=== PATIENT | female | born 1980 | race Caucasian/White ===

== ENCOUNTER 2019-09-01 17:28 | Emergency (ER) | payer OTHER ==
--- OUTSIDE RECORDS SUMMARY | 2019-09-01 18:01 | XMS REPORT | Continuity of Care Document ---
:1980 External Reference #:[id number] Author Name Liu Amanda M.D. 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 Onset: 01/10/2012 Disorder of thyroid gland Liu Amanda M.D. Onset: 01/10/2012 Gastroesophageal reflux disease Liu Amanda M.D. Onset: 01/10/2012 Social History Type Date Description Comments Sex Unknown Tobacco Use Start: Unknown Never Smoked Cigarettes ETOH Use Rarely consumes alcohol Allergies, Adverse Reactions, Alerts Active Allergies Reaction Severity Comments Date Penicillins HIVES 05/04/2009 Amoxicillin HIVES 05/04/2009 Medications Active Medications SIG Qnty Indications Ordering Provider Date Percocet 1-2 by mouth 20tabs Liu Amanda M.D. 07/14/2019 5-325mg four times a day Tablets as needed for pain Ondansetron one tab q8 30tabs Liu Amanda M.D. 07/14/2019 4mg Tablets Dispers Cytomel one tab daily 30tabs Liu Amanda M.D. 06/16/2019 25mcg Tablets for a month Tirosint 2 by mouth every Unknown 150mcg day Capsules Immunizations Description No Information Available Vital Signs Date Vital Result Comment 07/21/2019 1:54pm Weight 236.00 lb Height 64.5 inches 5'4.50" BMI (Body Mass Index) 39.9 kg/m2 BP Systolic 134 mmHg BP Diastolic 87 mmHg Heart Rate 93 /min O2 % BldC Oximetry 96 % Body Temperature 98.4 F Pain Level 0 07/07/2019 4:06pm Weight 240.00 lb Height 64.5 inches 5'4.50" BMI (Body Mass Index) 40.6 kg/m2 BP Systolic 134 mmHg BP Diastolic 78 mmHg Heart Rate 94 /min O2 % BldC Oximetry 98 % Body Temperature 98.5 F Pain Level 0 Results Test Acquired Date Facility Test Result H/L Range Note Laboratory test 07/14/2019 [facility] Surgical SEE RESULT [address] Pathology BELOW [place], [place] [id number] [phone] TSH (Thyroid Stim Horm) 0.20 mcIU/mL Low 0.34-5.60 2 Free T4 (Free Thyroxine) 0.99 ng/dL Normal 0.61-1.12 3 Laboratory test 06/20/2019 [facility] Cytology SEE RESULT 4 , [address] Non-Arcade Game Technician BELOW [place], [place] [id number] [phone] TSH+Free T4 06/03/2019 [facility] TSH (Thyroid 28.05 High 0.34 - [address] Stim Horm) mcIU/mL 5.60 [place], [place] [address] [phone] Free T4 (Free Thyroxine) 0.42 ng/dL Low 0.61-1.12 7 1 SEE RESULT BELOW Name: DIANNA AQUINO : [address]: Liu Amanda MD Acct: [id number] Unit: [id number] AGE: 39 Location: [facility] Re07/14/19 SEX: F Status: REG REF SPEC: [id number] MEDHAT: 07/14/19-9 [facility] [address]: Liu Amanda MD REQ: [id number] RECD: 07/14/19 STATUS: SOUT _ ORDERED: LEVEL 4 COMMENTS: [id number] FINAL DIAGNOSIS Midline neck, excision: -- Benign thyroid parenchymal nodule with nodular hyperplasia. -- No evidence of neoplasia. COMMENT: Sections show skeletal muscle and fibroadipose tissue with a well demarcated nodule of benign thyroid tissue. The findings are favored to represent a heterotopic focus of benign thyroid. CLINICAL HISTORY No history given GROSS DESCRIPTION The specimen is received in formalin labeled, Midline Neck Mass, and consists of a 2.0 x 1.1 x 0.9 cm case-reyes ovoid rubbery smooth to shaggy soft tissue nodule with a small amount of adherent yellow fat. The cut surface is translucent case-brown and colloidal. The specimen is inked, serially sectioned and entirely submitted in one cassette. Signed by and Reported on: Elizabeth Trinh MD 07/16/19 1548 END OF REPORT DEPARTMENT OF PATHOLOGY, [address] [place] [address] Primitivo Rose M.D. Director [facility] # [id number] 2 [id number] 5 SEE RESULT BELOW Name: DIANNA AQUINO : [address]: Liu Amanda MD Acct: [id number] Unit: [id number] AGE: 39 Location: [facility] Re06/20/19 SEX: F Status: REG REF SPEC: [id number] MEDHAT: 06/20/[address] [facility] [address]: Liu Amanda MD REQ: [id number] RECD: 06/20/19 STATUS: SOUT _ ORDERED: FNA [facility], LEVEL 4, IMMUNO-FIRST COMMENTS: [id number] FINAL DIAGNOSIS Mid-line neck mass, fine needle aspiration: -- Benign thyroid nodule, colloid/hyperplastic ([place] class II). The specimen demonstrates abundant watery colloid, an abundant amount of benign appearing follicular epithelium arranged in uniform sheets, medium sized follicles and only occasional small groups. No features of papillary carcinoma are seen. In this clinical setting the risk of malignancy is less than 3%. Clinical management of this thyroid nodule should be based on clinical and radiographic features as well as the above. An immunohistochemical stain for thyroglobulin performed with appropriate control demonstrates positive staining in proteinaceous debris. No epithelial elements are seen. A cell block was prepared in the evaluation of this specimen. CONTINUED ON NEXT PAGE DEPARTMENT OF PATHOLOGY, [address] [place] [address] Primitivo Rose M.D. Director [facility] # [id number] SPECIMEN(S) RECEIVED 1. NECK - MID LINE NECK MASS FINE NEEDLE ASPIRATION CLINICAL HISTORY Mid line neck mass. GROSS DESCRIPTION 1 Alcohol fixed slide(s) received from clinician, 5 Air dried slide(s) and needle rinse in formalin for cell block. Signed by and Reported on: Primitivo Rose MD 1020 END OF REPORT DEPARTMENT OF PATHOLOGY, [address] [place] [address] Primitivo Rose M.D. Director [facility] # [id number] 6 [id number] Procedures Date Code Description Status 07/14/2019 11897 Exc.Cyst Or Adenoma Of Thyroid Completed 07/14/2019 16768 Anesthesia, Neck Organ Surgery Not Otherwise Spec 1Yr Or Completed Older 06/20/2019 13287 Fine Needle Aspiration Biopsy [facility] Ultrasound Guidance Completed 06/03/2019 87584 Ultrasound Head/Neck Completed 06/03/2019 59976 Fiberoptic Laryngoscopy,Diag. Completed Medical Devices Description No Information Available Encounters Type Date Location Provider Dx Diagnosis Office Visit 07/07/2019 Main Office Liu Amanda M.D. H66.92 Otitis media , 4:15p unspecified, left ear R22.1 Localized swelling, mass and lump, neck Office Visit 06/03/2019 3:45p Main Office Liu Amanda, R22.1 Localized swelling, M.D. mass and lump, neck R13.10 Dysphagia, unspecified Assessments Date Code Description Provider 07/14/2019 E07.89 Other specified disorders of thyroid Erik Jimenez MD 07/14/2019 E07.89 Other specified disorders of thyroid Liu Amanda M.D. 07/07/2019 H66.92 Otitis media, unspecified, left ear Liu Amanda M.D. 07/07/2019 R22.1 Localized swelling, mass and lump, neck Liu Amanda M.D. 06/20/2019 R22.1 Localized swelling, mass and lump, neck Liu Amanda M.D. 06/03/2019 R22.1 Localized swelling, mass and lump, neck Liu Amanda M.D. 06/03/2019 R13.10 Dysphagia, unspecified Liu Amanda M.D. Plan of Treatment No Information Available Functional Status Description No Information Available Mental Status Description No Information Available Referrals Refer to Dr Reason for Referral Status Appt Date Liu Amanda M.D. NO AUTH REQ FOR SURGERY Created [address] [place] [address] [phone] Liu Amanda M.D. AUTH FOR ULTRASOUND Created [address] [place] [phone]
--- OUTSIDE RECORDS SUMMARY | 2019-09-01 18:01 | XMS REPORT | Continuity of Care Document ---
:1980 External Reference #:[id number] Author Name Liu Amanda M.D. (transmitted by agent of provider Jaqui Pittman) Address [address] [place] [address] Care Team Providers Name Role Phone David Menendez MD - General Care Team Information Director Learning Services Practice Problems Active Problems Provider Date Postoperative [...] Medications SIG Qnty Indications Ordering Provider Date Cytomel one tab daily 30tabs Liu Amanda M.D. 06/16/2019 25mcg Tablets for a month Tirosint 2 by mouth Unknown 150mcg Capsules every day Immunizations Description No Information Available Vital Signs Date Vital Result Comment 07/07/2019 4:06pm Weight 240.00 lb Height 64.5 inches 5'4.50" BMI (Body Mass Index) 40.6 kg/m2 BP Systolic 134 mmHg BP Diastolic 78 mmHg Heart Rate 94 /min O2 % BldC Oximetry 98 % Body Temperature 98.5 F Pain Level 0 06/03/2019 3:45pm Weight 245.00 lb Height 64.5 inches 5'4.50" BMI (Body Mass Index) 41.4 kg/m2 BP Systolic 135 mmHg BP Diastolic 81 mmHg Heart Rate 72 /min O2 % BldC Oximetry 99 % Body Temperature 96.9 F Pain Level 0 Results Test Acquired Date Facility Test Result H/L Range Note Laboratory test 06/20/2019 [facility] Cytology SEE RESULT 1 , [address] Non-[place] [address] [phone] TSH+Free T4 06/03/2019 [facility] TSH (Thyroid 28.05 High 0.34 -5.[address] Stim Horm) mcIU/mL [place], [place] [address] [phone] Free T4 (Free Thyroxine) 0.42 ng/dL Low 0.61-1.12 4 1 [id number] 2 SEE RESULT BELOW Name: DIANNA AQUINO : [address]: Liu Amanda MD Acct: [id number] Unit: [id number] AGE: 39 Location: [facility] Re06/20/19 SEX: F Status: REG REF SPEC: [id number] MEDHAT: 06/20/[address] [facility] [address]: Liu Amanda MD REQ: [id number] RECD: 06/20/19 STATUS: SOUT _ ORDERED: FNA [facility], LEVEL 4, IMMUNO-FIRST COMMENTS: [id number] FINAL DIAGNOSIS Mid-line neck mass, fine needle aspiration: -- Benign thyroid nodule, colloid/hyperplastic ([place] class II). The specimen demonstrates abundant watery [...] CONTINUED ON NEXT PAGE DEPARTMENT OF PATHOLOGY, [address] [place] [address] Primitivo Rose M.D. Director [facility] # [id number] SPECIMEN(S) RECEIVED 1. NECK - MID LINE NECK MASS FINE NEEDLE ASPIRATION CLINICAL HISTORY Mid line neck mass. GROSS DESCRIPTION 1 Alcohol fixed slide(s) received from clinician, 5 Air dried slide(s) and needle rinse in formalin for cell block. Signed by and Reported on: Primitivo Rose MD 1020 END OF REPORT DEPARTMENT OF PATHOLOGY, [address] [place] [address] Primitivo Rose M.D. Director [facility] # [id number] 3 [id number] Procedures Date Code Description Status 06/20/2019 24450 Fine Needle Aspiration Biopsy [facility] Ultrasound Guidance Completed 06/03/2019 29957 Ultrasound Head/Neck Completed 06/03/2019 19309 Fiberoptic Laryngoscopy,Diag. Completed Medical Devices Description No Information Available Encounters Type Date Location Provider Dx Diagnosis Office Visit 07/07/2019 Main Office Liu Amanda M.D. H66.92 Otitis media , 4:15p unspecified, left ear R22.1 Localized swelling, mass and lump, neck Office Visit 06/03/2019 3:45p Main Office Liu Amanda R22.1 Localized swelling, M.D. mass and lump, neck R13.10 Dysphagia, unspecified Assessments Date Code Description Provider 07/07/2019 H66.92 Otitis media, unspecified, left ear Liu Amanda M.D. 07/07/2019 R22.1 Localized swelling, mass and lump, neck Liu Amanda M.D. 06/20/2019 R22.1 Localized swelling, mass and lump, neck Liu Amanda M.D. 06/03/2019 R22.1 Localized swelling, mass and lump, neck Liu Amanda M.D. 06/03/2019 R13.10 Dysphagia, unspecified Liu Amanda M.D. Plan of Treatment Future Appointment(s):07/21/2019 1:45 pm - Liu Amanda M.D. at Main [id number] 9:00 am - [facility] Functional Status Description No Information Available Mental Status Description No Information Available Referrals Refer to Dr Reason for Referral Status Appt Date Liu Amanda M.D. NO AUTH REQ FOR SURGERY Created [address] [place] [phone] Liu Amanda M.D. AUTH FOR ULTRASOUND Created [address] [place] [address] [phone]
--- OUTSIDE RECORDS SUMMARY | 2019-09-01 18:01 | XMS REPORT | Continuity of Care Document ---
:1980 External Reference #:[id number] Author Name Liu Amanda M.D. Address [address] [place] [address] Care Team Providers Name Role Phone David Menendez MD - General Care Team Information Records Management Manager Practice Problems Active Problems Provider Date Postoperative [...] Result H/L Range Note Laboratory test 07/14/2019 [facility] Surgical SEE RESULT [address] [place] [address] [phone] TSH (Thyroid Stim Horm) 0.20 mcIU/mL Low 0.34-5.60 2 Free T4 (Free Thyroxine) 0.99 ng/dL Normal 0.61-1.12 3 Laboratory test 06/20/2019 [facility] Cytology SEE RESULT 4 , [address] Non-Cold [place] [address] [phone] TSH+Free T4 06/03/2019 [facility] TSH (Thyroid 28.05 High 0.34 - [address] Stim Horm) mcIU/mL 5.60 [place] [address] [phone] Free T4 (Free Thyroxine) 0.42 ng/dL Low 0.61-1.12 7 1 SEE RESULT BELOW Name: DIANNA AQUINO : [address]: Liu Amanda MD Acct: [id number] Unit: [id number] AGE: 39 Location: [facility] Re07/14/19 SEX: F Status: REG REF SPEC: [id number] MEDHAT: 07/14/19-[address] [facility] [address]: Liu Amanda MD REQ: [id number] RECD: 07/14/19 STATUS: SOUT _ ORDERED: LEVEL 4 COMMENTS: [id number] FINAL DIAGNOSIS Midline neck, excision: -- Benign [...] 1548 END OF REPORT DEPARTMENT OF PATHOLOGY, [address] [place] [address] Primitivo Rose M.D. Director [facility] # [id number] 2 [id number] 5 SEE RESULT BELOW Name: DIANNA AQUINO : [address]: Liu Amanda MD Acct: [id number] Unit: [id number] AGE: 39 Location: [facility] Re06/20/19 SEX: F Status: REG REF SPEC: [id number] MEDHAT: 06/20/19-[address] [facility] [address]: Liu Amanda MD REQ: [id number] RECD: 06/20/19 STATUS: SOUT _ ORDERED: FNA [facility], LEVEL 4, IMMUNO-FIRST COMMENTS: [id number] FINAL DIAGNOSIS Mid-line neck mass, fine needle aspiration: -- Benign thyroid nodule, colloid/hyperplastic (Surveyor class II). The specimen demonstrates abundant watery [...] CONTINUED ON NEXT PAGE DEPARTMENT OF PATHOLOGY, [address] [place] [address] Primitivo Rose M.D. Director [facility] # [id number] SPECIMEN(S) RECEIVED 1. NECK - MID LINE NECK MASS FINE NEEDLE ASPIRATION CLINICAL HISTORY Mid line neck mass. GROSS DESCRIPTION 1 Alcohol fixed slide(s) received from clinician, 5 Air dried slide(s) and needle rinse in formalin for cell block. Signed by and Reported on: Primitivo Rose MD 1020 END OF REPORT DEPARTMENT OF PATHOLOGY, [address] [place] [address] Primitivo Rose M.D. Director [facility] # [id number] 6 [id number] Procedures Date Code Description Status 07/14/2019 19443 Exc.Cyst Or Adenoma Of Thyroid Completed 07/14/2019 73834 Anesthesia, Neck Organ Surgery Not Otherwise Spec 1Yr Or Completed Older 06/20/2019 87025 Fine Needle Aspiration Biopsy [facility] Ultrasound Guidance Completed 06/03/2019 54013 Ultrasound Head/Neck Completed 06/03/2019 16048 Fiberoptic Laryngoscopy,Diag. Completed Medical Devices Description No Information Available Encounters Type Date Location Provider Dx Diagnosis Office Visit 07/07/2019 Main Office Liu Aamnda M.D. H66.92 Otitis media , 4:15p unspecified, left ear R22.1 Localized swelling, mass and lump, neck Office Visit 06/03/2019 3:45p Main Office Liu Amanda, R22.1 Localized swelling, M.D. mass and lump, neck R13.10 Dysphagia, unspecified Assessments Date Code Description Provider 07/21/2019 R22.1 Localized swelling, mass and lump, neck Liu Amanda M.D. 07/14/2019 E07.89 Other specified disorders of thyroid [...] M.D. NO AUTH REQ FOR SURGERY Created [address] [place] [phone] Liu Amanda M.D. AUTH FOR ULTRASOUND Created [address] [place] [phone]
[2019-09-01 19:31] VITALS: BP 123/69
[2019-09-01 20:10] LABS: Influenza B Molecular POSITIVE (Negative)
--- NOTE | 2019-09-01 20:14 | UC ---
FLU HPI - HPI Summary HPI Summary: 39-year-old female presents with onset of subjective fever, chills, general malaise, body aches, nasal congestion, sore throat, and occasional dry nonproductive cough yesterday. States symptoms have progressively worsened throughout the day today. She did have her flu shot this season. Denies ear pain, dysphagia, chest pain, shortness of breath, abdominal pain, nausea, vomiting, or diarrhea. - History of Current Complaint Chief Complaint: UCGeneralIllness Stated Complaint: STUFFY, COUGH, SORE THROAT Time Seen by Provider: 09/01/19 19:59 Hx Obtained From: Patient Hx Last Menstrual Period: 08/13/19 Pain Intensity: 8 - Allergy/Home Medications Allergies/Adverse Reactions: Allergies Allergy/AdvReac Type Severity Reaction Status Date / Time amoxicillin Allergy Hives Verified 09/01/19 19:32 Penicillins Allergy Hives Verified 09/01/19 19:32 PMH/Surg Hx/FS Hx/Imm Hx Endocrine History: Thyroid Disease - Surgical History Surgical History: Yes Surgery Procedure, Year, and Place: 2003 -STENT IN BILIARY DUCT GALLBLADDER. 2004 - STENT REMOVED FROM BILIARY DUCT. 07/08 - Lt [facility]- THYROIDECTOMY and then right. GALLBLADDER REMOVED - Family History Known Family History: Positive: Non-Contributory - Social History Occupation: Employed Full-time Lives: With Family Alcohol Use: Occasionally Substance Use Type: None Smoking Status (MU): Never Smoked Tobacco Review of Systems All Other Systems Reviewed And Are Negative: Yes Constitutional: Positive: Fever - Subjective, Chills Eyes: Negative: Drainage, Eye Redness ENT: Positive: Sore Throat, Nasal Discharge, Sinus Congestion. Negative: Ear Ache, Sinus Pain/Tenderness Respiratory: Positive: Cough. Negative: Shortness Of Breath Cardiovascular: Negative: Chest Pain Gastrointestinal: Negative: Abdominal Pain, Vomiting, Diarrhea, Nausea Genitourinary: Positive: Negative Musculoskeletal: Positive: Myalgia Neurological: Positive: Negative Is Patient Immunocompromised?: No Physical Exam - Summary Physical Exam Summary: GENERAL APPEARANCE: Well developed, well nourished, alert and cooperative, and appears to be in no acute distress. EYES: Conjunctiva clear. No drainage. EARS: External auditory canals and tympanic membranes clear, hearing grossly intact. NOSE: Moderate nasal congestion. Clear nasal discharge. THROAT: Pharyngeal erythema without tonsilar inflammation, swelling, exudate, or lesions. Uvula midline. NECK: Neck supple, non-tender without lymphadenopathy. CARDIAC: Normal S1 and S2. No S3, S4 or murmurs. Rhythm is regular. There is no peripheral edema, cyanosis or pallor. Extremities are warm and well perfused. Capillary refill is less than 2 seconds. Peripheral pulses intact. LUNGS: Clear to auscultation without rales, rhonchi, wheezing or diminished breath sounds. Dry nonproductive cough and ABDOMEN: Positive bowel sounds. Soft, nondistended, nontender. No guarding or rebound. No masses or hepatosplenomegally. MUSKULOSKELETAL: ROM intact to all extremities. No joint erythema or tenderness. Normal muscular development. Normal gait. SKIN: Skin normal color, texture and turgor with no lesions or eruptions. Triage Information Reviewed: Yes Vital Signs: Initial Vital Signs Temp 98.3 F 09/01/19 19:19 Pulse 77 09/01/19 19:19 Resp 18 09/01/19 19:19 BP 123/69 09/01/19 19:19 Pulse Ox 100 09/01/19 19:19 Vital Signs Reviewed: Yes Flu Course/Dx - Course Course Of Treatment: 39-year-old female presents with onset of subjective fever, chills, general malaise, body aches, nasal congestion, sore throat, and occasional dry nonproductive cough yesterday. States symptoms have progressively worsened throughout the day today. She did have her flu shot this season. Denies ear pain, dysphagia, chest pain, shortness of breath, abdominal pain, nausea, vomiting, or diarrhea. Afebrile. Vital signs stable. Patient had moderate nasal congestion, clear nasal discharge, pharyngeal erythema without tonsillar swelling or exudate, no cervical lymphadenopathy, clear bilateral breath sounds , dry nonproductive cough, and otherwise unremarkable exam. Rapid flu test was positive for influenza B. Results were reviewed with the patient. We discussed the risks and benefits of starting Tamiflu and patient is electing to do so at this time. I also recommended symptomatic treatment. She is to follow -up with a primary care provider in 7 days if symptoms are not improving. Anticipatory guidance warning symptoms were due to the patient. Verbalizes understanding and agrees with plan of care. - Differential Dx/Diagnosis Differential Diagnosis/HQI/PQRI: Bronchitis, Influenza, Pneumonia, Upper Respiratory Infection Provider Diagnosis: Influenza B Discharge ED - Sign-Out/Discharge Documenting (check all that apply): Patient Departure All imaging exams completed and their final reports reviewed: No Studies - Discharge Plan Condition: Stable Disposition: HOME Prescriptions: Benzonatate CAP* [Tessalon 100 MG CAP*] 100 mg PO TID PRN #21 cap PRN Reason: Cough Oseltamivir CAP* [Tamiflu CAP*] 75 mg PO BID #10 cap Patient Education Materials: Influenza (ED) Referrals: David Menendez MD [Primary Care Provider] - 7 Days (If no improvement.) Additional Instructions: Your flu test in the clinic today was positive for influenza B. Start Tamiflu 1 capsule twice a day for 5 days. Get plenty of rest. Drink plenty of fluids to avoid dehydration especially if you are running any fever. Take over the counter acetaminophen (Tylenol) or ibuprofen (Advil, Motrin) according to directions as needed for pain or fever. You can use an over the counter decongestant such as Sudafed for the nasal congestion. Take Tessalon Perles 1 cap every 8 hours as needed for cough. Use salt water gargles several times a day if you have a sore throat. You may also use Chloraseptic spray or Cepacol lonzenges according to directions which contain a numbing medication and can provide some temporary relief from your sore throat. Follow up with your primary care provider in 7 days if symptoms persist. Seek immediate medical attention in the emergency room if you have fever greater than 100.5 F despite taking acetaminophen or ibuprofen, have chest pain , difficulty breathing, are unable to swallow, or have any worsening of symptoms. - Billing Disposition and Condition Condition: STABLE Disposition: Home
== END 2019-09-01 20:26 | disposition home or self-care (01) ==
LOC: UCCORT 17:28
DX: J10.1 Influenza due to other identified influenza virus with other respiratory manifestations (principal); Z88.0 Allergy status to penicillin
CPT/HCPCS: 99212; G0463